=== PATIENT | male | born 1985 | race Caucasian/White ===

== ENCOUNTER 2021-12-08 10:15 | Emergency (ER) | payer OTHER ==
[2021-12-08 12:23] LABS: BASOPHIL 0.6 % (0-2); EOSINOPHIL 3.5 % (0-5); HCT 45.7 % (42.0-52.0); HGB 15.6 g/dl (13.2-18.0); LYMPHOCYTE 27.5 % (15-48); MCH 27.8 pg (25.0-31.0); MCHC 34.1 g/dL (32.0-36.0); MCV 81.3 fL (78.0-100.0); MONOCYTE 6.5 % (0-12); MPV 9.9 fL (6.0-9.5); NEUTROPHIL 61.7 % (41-80); NRBC 0; PLT 304 K/uL (150-400); RBC 5.62 M/uL (4.70-6.00); RDW 12.5 % (11.5-14.0)
[2021-12-08 12:24] LABS: ALBUMIN 4.1 g/dL (3.4-5.0); BILIRUBIN - TOTAL 0.8 mg/dL (0.2-1.0); BUN/CREAT RATIO (CALC) 10.8 RATIO; CREATININE 0.74 mg/dL (0.67-1.17); GLOBULIN (CALCULATION) 4.4 g/dL; POTASSIUM 3.7 mmol/L (3.5-5.1); TOTAL PROTEIN 8.5 g/dL (6.4-8.2)
== END 2021-12-08 13:50 | disposition home or self-care (01) ==
LOC: FER 10:15
PROVIDERS: Emergency Medicine
DX: R07.89 Other chest pain (principal); I10 Essential (primary) hypertension; Z88.0 Allergy status to penicillin; Z79.899 Other long term (current) drug therapy
CPT/HCPCS: 36415; 71046; 80053; 84484; 85025; 93005